=== PATIENT | female | born 1970 | race African-American/Black ===

== ENCOUNTER 2017-10-25 05:21 | Emergency (ER) | payer MEDICAID, OTHER ==
[~2017-10-25] VITALS: Ht 180.3 cm; Wt 73.0 kg
[2017-10-25] MEDS ORDERED: LEVO100T5 PO (05:28)
[2017-10-25] MEDS ORDERED: FERR325T18 PO (05:28)
[2017-10-25] MEDS ORDERED: ASCO10004 PO (05:28)
[2017-10-25] MEDS ORDERED: HYDROmorphone 2 MG/ML, 1ML ONE (05:59)
[2017-10-25] MEDS ORDERED: ONDANSETRON 2MG/ML, 2ML ONE (05:59)
[2017-10-25] MEDS ORDERED: DIAZEPAM 5 MG/ML, 2ML IV ONE (06:00)
[2017-10-25] MEDS ORDERED: ONDANSETRON 2MG/ML, 2ML IVPush ONE (06:00)
[2017-10-25] MEDS ORDERED: HYDROmorphone 1 MG/ML, 1ML IVPush PRN (06:00)
[2017-10-25] MEDS ORDERED: SODIUM CHLORIDE 0.9% 1,000ML IVBOLUS ONE (06:00)
[2017-10-25] MEDS ORDERED: SODIUM CHLORIDE FLUSH 10ML SYR IVF ONE (06:00)
[2017-10-25 06:13] LABS: HEMATOCRIT 40.2 % (34.6-47.8); HEMOGLOBIN 13.5 g/dL (11.7-16.4); WHITE BLOOD COUNT 5.6 x10^3/uL (3.4-10)
[2017-10-25 06:29] LABS: BLOOD UREA NITROGEN 15 mg/dL (7-18)
[2017-10-25 06:33] LABS: ASPARTATE AMINO TRANSFERASE 11 U/L (15-37)
[2017-10-25] MEDS ORDERED: OMNIPAQUE 350 MG/ML, 100ML BOTTLE ONE (07:03)
[2017-10-25 08:38] VITALS: BP 140/82
== END 2017-10-25 08:38 | disposition home or self-care (01) ==
LOC: ED 05:46
DX: S13.4XXA Sprain of ligaments of cervical spine, initial encounter (principal); E05.00 Thyrotoxicosis with diffuse goiter without thyrotoxic crisis or storm; J44.9 Chronic obstructive pulmonary disease, unspecified; Z87.891 Personal history of nicotine dependence; V89.2XXA Person injured in unspecified motor-vehicle accident, traffic, initial encounter; Y93.89 Activity, other specified; Y92.488 Other paved roadways as the place of occurrence of the external cause; Y99.8 Other external cause status
CPT/HCPCS: 36415; 70460; 70491; 80053; 85025; 96361; 96374; 96375; 99285; J1170; J2405; J3360; J7030; Q9967

== ENCOUNTER 2018-04-12 19:56 | Emergency (ER) | payer MEDICAID ==
[~2018-04-12] VITALS: Ht 180.3 cm; Wt 77.1 kg
[~2018-04-12 19:56] MED LIST: ASCO10004 PO; FERR325T18 PO; LEVO100T5 PO
[2018-04-12] MEDS ORDERED: FERR324T5 PO (20:04)
[2018-04-12] MEDS ORDERED: ASCO10004 PO (20:04)
[2018-04-12] MEDS ORDERED: LORazepam 1MG TABLET PO ONE (20:30)
[2018-04-12] MEDS ORDERED: KETOROLAC 30 MG/1 ML IM ONE (20:30)
[2018-04-12 20:32] LABS: BASOPHILS # (AUTO) 0.04 x10^3/uL (0-0.1); BASOPHILS % (AUTO) 0 % (0-1); EOSINOPHILS # (AUTO) 0.13 x10^3/uL (0-0.4); EOSINOPHILS % (AUTO) 1 % (1-7); LYMPHOCYTES # (AUTO) 3.03 x10^3/uL (1-3.4); LYMPHOCYTES % (AUTO) 27 % (22-44); MD NO; MEAN CORPUSCULAR HEMOGLOBIN 28.9 pg (27.0-34.8); MEAN CORPUSCULAR HGB CONC 33.7 g/dL (32.4-35.8); MEAN PLATELET VOLUME 8.9 fL (7.4-10.4); MONOCYTES # (AUTO) 0.29 x10^3/uL (0.2-0.8); MONOCYTES % (AUTO) 3 % (2-9); NEUTROPHILS % (AUTO) 69 % (42-75); PLATELET COUNT 318 x10^3/uL (130-400); RED BLOOD COUNT 4.81 x10^6/uL (3.82-5.3); RED CELL DISTRIBUTION WIDTH 12.6 % (9.6-15.2)
[2018-04-12 20:43] LABS: ALANINE AMINOTRANSFERASE 55 U/L (12-78); ALBUMIN 3.6 g/dL (3.4-5.0); ANION GAP 8 mmol/L (5-15); CALCIUM 9.1 mg/dL (8.5-10.1); CHLORIDE 106 mmol/L (98-107); CREATININE 0.72 mg/dL (0.55-1.02)
[2018-04-12 20:47] LABS: ALKALINE PHOSPHATASE 88 U/L (45-117); BILIRUBIN,TOTAL 0.5 mg/dL (0.2-1.0); TOTAL PROTEIN 7.9 g/dL (6.4-8.2); TROPONIN I < 0.015 ng/mL (0.000-0.045)
[2018-04-12 21:25] VITALS: BP 120/78
[2018-04-12 21:29] LABS: TROPONIN I < 0.015 ng/mL (0.000-0.045)
[2018-04-12] MEDS ORDERED: ACETAMINOPHEN 500 MG TABLET PO ONE (22:00)
== END 2018-04-12 22:17 | disposition home or self-care (01) ==
LOC: ED 22:05
DX: R07.89 Other chest pain (principal); Z87.891 Personal history of nicotine dependence; Z88.0 Allergy status to penicillin; Z88.6 Allergy status to analgesic agent; J44.9 Chronic obstructive pulmonary disease, unspecified; E03.9 Hypothyroidism, unspecified; E05.00 Thyrotoxicosis with diffuse goiter without thyrotoxic crisis or storm
CPT/HCPCS: 36415; 71046; 80053; 84484; 85025; 93005; 99285

== ENCOUNTER 2018-05-08 16:15 | Emergency (ER) | payer MEDICAID ==
[~2018-05-08] VITALS: Ht 180.3 cm; Wt 77.0 kg
[~2018-05-08 16:15] MED LIST changes: +FERR324T5 PO
[2018-05-08 16:17] VITALS: BP 112/81
[2018-05-08] MEDS ORDERED: IBUPROFEN 200 MG TABLET PO ONE (17:00)
[2018-05-08] MEDS ORDERED: ACETAMINOPHEN 500 MG TABLET PO ONE (17:00)
[2018-05-08] MEDS ORDERED: ACETAMINOPHEN 500 MG TABLET ONE (17:22)
== END 2018-05-08 17:29 | disposition home or self-care (01) ==
LOC: ED 17:23
DX: J00 Acute nasopharyngitis [common cold] (principal); J01.00 Acute maxillary sinusitis, unspecified; J01.10 Acute frontal sinusitis, unspecified; Z87.891 Personal history of nicotine dependence
CPT/HCPCS: 99283

== ENCOUNTER 2018-06-29 14:32 | Emergency (ER) | payer SELFPAY ==
[~2018-06-29] VITALS: Ht 180.3 cm; Wt 76.0 kg
[2018-06-29 14:38] VITALS: BP 142/89
[2018-06-29] MEDS ORDERED: KETOROLAC 30 MG/1 ML ONE (15:35)
[2018-06-29] MEDS: KETOROLAC 30 MG/1 ML IM ONE ×2 (15:58→15:59)
== END 2018-06-29 17:20 ==
LOC: ED 16:20
DX: S13.9XXA Sprain of joints and ligaments of unspecified parts of neck, initial encounter (principal); S23.3XXA Sprain of ligaments of thoracic spine, initial encounter; J44.9 Chronic obstructive pulmonary disease, unspecified; E03.9 Hypothyroidism, unspecified; Z87.891 Personal history of nicotine dependence; Z90.710 Acquired absence of both cervix and uterus; V49.49XA Driver injured in collision with other motor vehicles in traffic accident, initial encounter; Y93.89 Activity, other specified; Y99.8 Other external cause status; Y92.89 Other specified places as the place of occurrence of the external cause
CPT/HCPCS: 72072; 72125; 96374; 99284; J1885

== ENCOUNTER 2019-06-25 16:54 | Emergency (ER) | payer SELFPAY ==
[~2019-06-25] VITALS: Ht 180.3 cm; Wt 79.3 kg
[2019-06-25 17:10] VITALS: BP 149/95
== END 2019-06-25 18:44 | disposition home or self-care (01) ==
LOC: ED 17:45
DX: M79.661 Pain in right lower leg (principal); M25.571 Pain in right ankle and joints of right foot; J44.9 Chronic obstructive pulmonary disease, unspecified; E03.9 Hypothyroidism, unspecified; Z90.710 Acquired absence of both cervix and uterus; Z87.891 Personal history of nicotine dependence
CPT/HCPCS: 99284

== ENCOUNTER 2019-10-09 19:33 | Emergency (ER) | payer OTHER ==
[~2019-10-09] VITALS: Ht 180.3 cm; Wt 81.5 kg
[2019-10-09 19:40] VITALS: BP 168/97
[2019-10-09] MEDS ORDERED: METHOCARBAMOL 500 MG TABLET PO ONE (20:00)
[2019-10-09] MEDS ORDERED: DIPHENHYDRAMINE 50 MG/ML, 1ML IVPush ONE (20:00)
[2019-10-09] MEDS ORDERED: SODIUM CHLORIDE FLUSH 10ML SYR IVF ONE (20:00)
[2019-10-09] MEDS ORDERED: ONDANSETRON 2MG/ML, 2ML IVPush ONE (20:00)
[2019-10-09] MEDS ORDERED: SODIUM CHLORIDE 0.9% 1,000ML IVBOLUS ONE (20:00)
[2019-10-09] MEDS ORDERED: METHOCARBAMOL 500 MG TABLET ONE (20:03)
[2019-10-09] MEDS ORDERED: DIPHENHYDRAMINE 50 MG/ML, 1ML ONE (20:03)
[2019-10-09] MEDS ORDERED: ONDANSETRON 2MG/ML, 2ML ONE (20:03)
--- NOTE | 2019-10-09 20:34 | NUR ---
PT W/ HEADACHE SINCE 8AM THIS MORNING. PAIN 10/. PT TEARFUL. STATES THIS HAPPENED 8-9 MONTHS AGO. PIV STARTED, PT MEDICATED.
[2019-10-09] MEDS ORDERED: PROCHLORPERAZINE 5 MG/ML, 2ML ONE (20:37)
[2019-10-09] MEDS ORDERED: PROCHLORPERAZINE 5 MG/ML, 2ML IVPush ONE (21:00)
== END 2019-10-09 21:45 | disposition home or self-care (01) ==
LOC: ED 20:27
DX: G44.201 Tension-type headache, unspecified, intractable (principal); J44.9 Chronic obstructive pulmonary disease, unspecified; Z90.710 Acquired absence of both cervix and uterus; Z87.891 Personal history of nicotine dependence
CPT/HCPCS: 70450; 96374; 96375; 99284; J0780; J1200; J2405; J7030

== ENCOUNTER 2019-12-21 13:33 | Emergency (ER) | payer OTHER ==
[~2019-12-21] VITALS: Ht 180.3 cm; Wt 79.8 kg
[2019-12-21 13:50] VITALS: BP 124/90
--- NOTE | 2019-12-21 14:05 | NUR ---
xray at bedside
== END 2019-12-21 15:02 | disposition home or self-care (01) ==
LOC: ED 14:52
DX: S63.653A Sprain of metacarpophalangeal joint of left middle finger, initial encounter (principal); Z87.891 Personal history of nicotine dependence; W18.30XA Fall on same level, unspecified, initial encounter; Y93.89 Activity, other specified; Y92.009 Unspecified place in unspecified non-institutional (private) residence as the place of occurrence of the external cause; Y99.8 Other external cause status
CPT/HCPCS: 99283